=== PATIENT | female | born 1985 | race Two or more races ===

== ENCOUNTER 2017-03-17 02:57 | Emergency (ER) | payer OTHER ==
[~2017-03-17] VITALS: Ht 162.6 cm; Wt 54.4 kg
[~2017-03-17 02:57] MED LIST: Ativan1 MG PO; Augmentin 875-1 EACH PO; CHLO25 PO; CIPR500 PO; DIPH50 PO; IBUP800 PO; LORA1; Norco 5-325 Ta1 EACH PO; ONDA4ODT MM; PARO10 PO; PARO20 PO; PROM25 PO; TRAM50 PO; VALACYCLOVIR1000 MG PO; Zofran Odt8 MG SL
[2017-03-17] MEDS ORDERED: CEPH500 PO (04:01)
[2017-03-17] MEDS ORDERED: Bactrim 400-801 EACH PO (04:01)
== END 2017-03-17 04:15 | disposition home or self-care (01) ==
LOC: ER 02:57
DX: L03.211 Cellulitis of face (principal); F17.210 Nicotine dependence, cigarettes, uncomplicated; Z79.2 Long term (current) use of antibiotics
CPT/HCPCS: 99283

== ENCOUNTER 2017-03-28 18:40 | Emergency (ER) | payer OTHER ==
[~2017-03-28] VITALS: Ht 160 cm; Wt 54.4 kg
[~2017-03-28 18:40] MED LIST changes: +Bactrim 400-801 EACH PO; +CEPH500 PO
[2017-03-28] MEDS ORDERED: CYCL10 PO (22:46)
== END 2017-03-28 22:59 | disposition home or self-care (01) ==
LOC: ER 18:40
DX: S01.81XA Laceration without foreign body of other part of head, initial encounter (principal); F41.9 Anxiety disorder, unspecified; F17.210 Nicotine dependence, cigarettes, uncomplicated; Y04.8XXA Assault by other bodily force, initial encounter
CPT/HCPCS: 12011; 72040; 72125; 90471; 90714; 96372; 99284; J1885; L0160

== ENCOUNTER 2017-05-02 02:40 | Emergency (ER) | payer OTHER ==
[~2017-05-02] VITALS: Ht 162.6 cm; Wt 53.5 kg
[~2017-05-02 02:40] MED LIST changes: +CYCL10 PO
[2017-05-02] MEDS ORDERED: Bactrim Ds Tab1 EACH PO (05:53)
== END 2017-05-02 06:18 | disposition home or self-care (01) ==
LOC: ER 02:40
DX: L03.113 Cellulitis of right upper limb (principal); F41.9 Anxiety disorder, unspecified; F17.210 Nicotine dependence, cigarettes, uncomplicated; Z79.899 Other long term (current) drug therapy
CPT/HCPCS: 73120; 96372; 99283; J1885

== ENCOUNTER → 2017-05-15 | Outpatient (CLI) | payer OTHER ==
[~2017-05-15] MED LIST changes: +Bactrim Ds Tab1 EACH PO
== END ==
LOC: LAB SHORT 14:48 → LAB EV 14:48
DX: Z64.0 Problems related to unwanted pregnancy (principal)
CPT/HCPCS: 84702